=== PATIENT | male | born 1945 | race Caucasian/White ===

== ENCOUNTER → 2017-04-12 | Outpatient (CLI) | payer MEDICARE | END | disposition home or self-care (01) | LOC: SLEEP 16:03 | PROVIDERS: ATTEND Internal Medicine Critical Care Medicine | DX: Z53.9 Procedure and treatment not carried out, unspecified reason (principal) ==

== ENCOUNTER → 2017-06-28 | Outpatient (CLI) | payer MEDICARE ==
--- NOTE | 2017-06-29 10:17 | PN ---
A 71-year-old male patient coming in for a 6 month check regarding his obstructive sleep apnea treatment. The patient was diagnosed having severe KATHERINE with an AHI of 53.8. He is status post ( ). Patient is doing well on the treatment. His ( ) pressure is at 5.9. His average CPAP use is more than 4-1/2 hours per night and his AHI while on treatment is down to 3.7. He continues to have adequate clinical response. His sleep quality is good and he is waking up alert and refreshed during the day. He has history of PTSD and hypertension, hyperlipidemia. BP is 108/75, pulse 70, respirations 16, temperature is 98.0, BMI 31.9, weight is 210, height is 5,8, neck size is 17-1/4. Saturation 94% on room air. GENERAL APPEARANCE: Calm, comfortable. HEENT: Post ( ), no goiter or neck mass, soft palate is missing. LUNGS: Clear to auscultation. Heart sounds regular rate and rhythm, normal S1, S2. ABDOMEN: Soft, nontender, no organomegaly. EXTREMITIES: No edema, no cyanosis or clubbing. IMPRESSION: 1. Severe symptomatic obstructive sleep apnea with an apnea-hypopnea index of 53.8. The patient is still undergoing successful CPAP treatment. The patient is on Auto CPAP unit do to maximum pressure of 10 and minimum pressure of 4. Treatment remains successful. 2. Hypersomnia improved. 3. Posttraumatic stress disorder. 4. Hypertension. 5. Hyperlipidemia. PLAN: 1. Continue CPAP with the same pressure setting. 2. Renew CPAP supplies. 3. See me back in a years' time in followup, earlier if needed. KRISTI
== END ==
LOC: SLEEP 15:56
PROVIDERS: ATTEND Internal Medicine Critical Care Medicine
DX: G47.33 Obstructive sleep apnea (adult) (pediatric) (principal); G47.10 Hypersomnia, unspecified; I10 Essential (primary) hypertension; E78.5 Hyperlipidemia, unspecified; F43.10 Post-traumatic stress disorder, unspecified

== ENCOUNTER → 2018-07-19 | Outpatient (CLI) | payer MEDICARE ==
--- NOTE | 2018-07-19 12:30 | PN ---
PROGRESS NOTE This is a progress note from the sleep center. This 72-year-old male patient, a , who has been diagnosed having severe symptomatic obstructive sleep apnea a few years back with an AHI of 53.8. I have treated this patient with CPAP and the patient has an APAP unit at a maximum pressure of 10. I am seeing him today for his annual check up. Note that this patient is a and has been diagnosed having PTSD. He was also diagnosed having obstructive sleep apnea. He is under successful treatment. He has been averaging around 4.6 hours of CPAP use on his machine. His AHI while on treatment is down to 8.3. Today I noticed that he is having some leaks around the mask and I have made some adjustments and I offered him the AirFit N20 nose mask which will give him better seal. His P90 pressure is at 6.9. He is waking up refreshed and alert during the day. He thinks that the CPAP machine is benefitting him as his sleep quality is improved and he is not having any major hypersomnia or sleepiness during the day. His [place] score is at 12. On today's evaluation, the patient has gained some weight. He used to weigh around 210 pounds last year and he is currently is up to 228 with a BMI of 34.5. He is also having some statin induced leg cramps and pain for which he was started on Tegretol through his physician at [facility] and the treatment has helped. Otherwise, no other new complaints for now. REVIEW OF SYSTEMS: Twelve-point review of system was done. Positive findings were mentioned above in history of present illness. PHYSICAL EXAMINATION: BP is 146/71, pulse 61, respirations 16, temperature 98.1 saturation 96% on room air. Weight is 228. Height is 5 feet 8 inches. [place] score of 12. BMI 34.5. GENERAL APPEARANCE: Calm, comfortable. HEAD: Atraumatic normocephalic. NECK: Supple. No JVD. No goiter or neck mass. LUNGS: Diminished otherwise clear. HEART: Sounds regular rate and rhythm. Normal S1, S2. No S3, S4. No murmurs. ABDOMEN: Soft, nontender. No organomegaly. EXTREMITIES: No edema. No cyanosis or clubbing. NEUROLOGIC: Alert and oriented x3. There is no focal neurological deficit. IMPRESSION: 1. Severe symptomatic obstructive sleep apnea with an AHI of 53.8, currently on APAP. The patient continues to be treated successfully. We may need to make adjustments on his mask interface to help him with reduction in air leaks around the mask. 2. Posttraumatic stress disorder. 3. Hypertension. 4. Hyperlipidemia. 5. Leg cramps. This patient's obstructive sleep apnea is at least as likely as not related to his PTSD. We have data suggesting a good association between these two conditions. [facility] is already [facility] this and the patient is on partial disability for now pending further evaluation at a later stage. Meanwhile, I have made the recommendation for this patient to lose weight. He is up by around 14 pounds and he needs to go back to his original body weight. His treatment is successful. Will offer him the AirFit N20 full face mask large size and the patient was given a sample. If he preferred this mask, he will be permanently switched to the N20 nose mask. Otherwise he is doing good. We are still monitoring closely the association between PTSD and obstructive sleep apnea and for the time being this condition is at least as likely as not related to PTSD. We will continue to follow. We will work with the [facility] regarding his claims in the future. MMANAL / IJN: [id number] /
== END | disposition home or self-care (01) ==
LOC: SLEEP 10:59
PROVIDERS: ATTEND Internal Medicine Critical Care Medicine
DX: G47.33 Obstructive sleep apnea (adult) (pediatric) (principal); F43.10 Post-traumatic stress disorder, unspecified; I10 Essential (primary) hypertension; E78.5 Hyperlipidemia, unspecified; R25.2 Cramp and spasm; Z99.89 Dependence on other enabling machines and devices; Z79.899 Other long term (current) drug therapy

== ENCOUNTER → 2019-07-17 | Outpatient (CLI) | payer MEDICARE, OTHER ==
--- NOTE | 2019-07-17 12:24 | P.PN ---
Subjective Progress Note Date: 07/17/19 Principal diagnosis: Obstructive sleep apnea This is a very pleasant 73-year-old male patient is coming in for an annual checkup regarding his obstructive sleep apnea. As mentioned earlier, this patient has severe KATHERINE with an AHI 53.8 and the patient is being treated with CPAP therapy. The patient is currently utilizing an APAP mode with a maximum pressure of 10 and a minimum pressure of 4. He has a dream station Respironics units. Over this past 1 year, the patient did not have any major medical problems and comorbidities than the ones that he has. No new onset palpitations, cardiac arrhythmias, CVA, congestion heart failure or any heart attacks. He seems to be quite compliant with his APAP use. I check her compliance data and based on available information, the patient is been averaging 4.4 hours of APAP use per night and his AHI while in treatment is down to 7.8. He is having good mask fit and the P9 compression on the machine is reading at 5.8. He is waking up refreshed and alert during the day. During his last evaluation, I was able to give him and [id number] mask which she was unable to use and he went back and used his Eson nose mask. He is still looking for alternatives. Note that the patient has history of PTSD. He is at that time. He also has multiple medical problems and comorbidities. He is currently off her foot remains elevated at 20 despite his ongoing APAP use. He is able to function well. He does not fall asleep while driving. Does not fall asleep during the day activities. His sleep is fragmented mainly due to urination. He gets up multiple patient in the middle of the night to urinate. Symptoms of prostatism. Review of system 14 point review of system was done and the positive signs are almost above history of present illness. His sleep is fragmented. He has symptoms of prostatism with frequency and urgency and for that reason he wakes up multiple occasions in the middle of the night. No flashbacks. No nightmares. No nightmares. No sleepwalking. No sleep talking. No other parasomnias for now. Outpatient medication includes aspirin 81 mg by mouth daily, glucosamine chondroitin 1 tablet a day, lisinopril 5 mg by mouth daily, metoprolol 25 mg by mouth twice a day, MetroGel 1% topical, Naprosyn 500 mg on a when necessary basis and pravastatin 20 mg by mouth daily and verapamil 240 mg by mouth daily. Objective - Vital Signs Vital signs: His vitals include a blood pressure 121/72 with a pulse of 64 and the respiration of 16 with a BMI of 33.6 with a height of 57 and a weight of 218. His temperature is 97.8. Saturation 97% on room air. His current upper score is at 20. - Exam The patient appeared well nourished and normally developed. Vital signs as documented. Head exam is unremarkable. No scleral icterus or corneal arcus noted. Neck is without jugular venous distension, thyromegaly, or carotid bruits. Carotid upstrokes are brisk bilaterally. Lungs are clear to auscultation and percussion. Cardiac exam reveals the PMI to be normally sized and situated. Rhythm is regular. First and second heart sounds normal. No murmurs, rubs or gallops. Abdominal exam reveals normal bowel sounds, no masses, no organomegaly and no aortic enlargement. Extremities are nonedematous and both femoral and pedal pulses are normal.Examination of the skin revealed no evidence of significant rashes, suspicious appearing nevi or other concerning lesions. Neurologically the patient is awake and alert and there is no focal neurological deficits. Assessment and Plan Assessment: 1 obstructive sleep apnea, severe with an AHI of 53.8 and the patient continues to be successfully treated with APAP 2 hypersomnia improved despite the subjective reporting of an elevated a poor score of 20. 3 hypertension 4 hyperlipidemia 5 PTSD 6 history of leg cramps Plan Continue using APAP with a minimum of 4 and a maximum of 10. I'm going to offer in the dreamware under the nose medium-size nose mask. This will be an alternative methods to the one that he has for now. The patient is able to maintain his own weight. No recent weight loss. His comorbidities are all inactive and stable. He has history of PTSD units he is not being actively treated for that condition. He is not symptomatic from that standpoint. He is intermittently good sleep hygiene measures. Is still living with his . I'm hoping that the change in the mask interface will improve his compliance he further. I'll see him back in a years time, earlier if needed.
== END | disposition home or self-care (01) ==
LOC: SLEEP 10:52
PROVIDERS: ATTEND Internal Medicine Critical Care Medicine
DX: G47.33 Obstructive sleep apnea (adult) (pediatric) (principal); I10 Essential (primary) hypertension; E78.5 Hyperlipidemia, unspecified; F43.10 Post-traumatic stress disorder, unspecified; Z87.39 Personal history of other diseases of the musculoskeletal system and connective tissue; Z99.89 Dependence on other enabling machines and devices; Z79.82 Long term (current) use of aspirin; Z79.899 Other long term (current) drug therapy

== ENCOUNTER → 2020-07-22 | Outpatient (CLI) | payer MEDICARE ==
--- NOTE | 2020-07-22 16:17 | PN ---
PROGRESS NOTE Micheal is 74, coming in for an annual check regarding sleep apnea. He has severe obstructive sleep apnea with an AHI of 53, he has PTSD. He ended up quitting treatment altogether as the patient was having some feelings of claustrophobia and anxiety while on the CPAP. His treatment has been successful in the past and he has an APAP with a minimum pressure of 4, maximum pressure of 15. He has been given different masks and most recently he is using a Osuna FX nose mask. He has also used full mask in the past. He is sleepy. He is anxious. He is chronically tired. His weight has been essentially up by around 8 pounds since his last evaluation. His current body weight is up to 226. He has PFTs, comorbidities, in addition to hypertension, hyperlipidemia and history of leg cramps. PHYSICAL EXAMINATION: BP is 122/72, pulse 80, respirations 16, temperature 97.6, saturation 95% on room air. Height is 5, 8 inches, and weight is 226 and BMI 34.3. GENERAL APPEARANCE: Calm, comfortable. HEAD: Atraumatic, normocephalic. NECK: Supple. No JVD. No goiter or neck masses, Mallampati class 4. LUNGS: Clear to auscultation. HEART: Sounds are regular rate and rhythm, normal S1, S2. No murmurs. ABDOMEN: Soft, nontender, no organomegaly. EXTREMITIES: No edema, no cyanosis or clubbing. NEUROLOGIC: Awake and alert, there is no focal neurological deficit. IMPRESSION: 1. Obstructive sleep apnea, severe AHI of 53.8, symptomatic. 2. Chronic hypersomnia. 3. Obesity with interval weight gain, BMI 34.3. 4. PTSD. 5. Claustrophobia. 6. Hypertension. 7. Hyperlipidemia. 8. History of leg cramps. PLAN: 1. The patient is going to see his counselor regarding PTSD and treatment is advised. 2. We will start the CPAP again with a different mask interface and I offered the AirFit P30I nose piece, medium size. 3. Keep the same pressure setting. 4. Encourage weight loss. See me back in 3 months' time in followup. MMODL / IJN: [id number] / MTDD
== END | disposition home or self-care (01) ==
LOC: SLEEP 14:55
PROVIDERS: ATTEND Internal Medicine Critical Care Medicine
DX: E66.9 Obesity, unspecified (principal); I10 Essential (primary) hypertension; E78.5 Hyperlipidemia, unspecified; Z68.34 Body mass index [BMI] 34.0-34.9, adult; F40.240 Claustrophobia; F43.10 Post-traumatic stress disorder, unspecified; G47.10 Hypersomnia, unspecified; Z87.39 Personal history of other diseases of the musculoskeletal system and connective tissue

== ENCOUNTER → 2020-11-04 | Outpatient (CLI) | payer MEDICARE ==
--- NOTE | 2020-11-04 17:11 | PN ---
PROGRESS NOTE Micheal is 75, coming in for a followup. He has significantly improved since his last evaluation. Note that the patient has been started on a combination of Lexapro and trazodone 50 mg that he is taking at nighttime. This helped him quite a bit in terms of his compliance with the CPAP machine. He is using his CPAP machine every night. I checked his 30-day compliancy, and the patient has been achieving more than 4 hours almost every night. He is averaging around 6.1 hours of CPAP use and his AHI is down to 4.3 with a P90 pressure of 6.6. He is still struggling with different masks. I gave him the AirFit P30i, and on today's evaluation I gave him the N30i, knowing that he is having some cysts and irritation in his nostril. He also has a Mirage FX nose pillow, and I gave him an alternative to that which is the Nuance Pro nose pillow. He is going to try these as options and let me know which one would be his choice. He is waking up refreshed. He is waking up alert. He is more rested, much more comfortable. No new complaints. PHYSICAL EXAMINATION: BP is 129/75, pulse 68, respirations 16, temperature is 98.2, saturation 95% on room air. Height is 5 feet 8 inches, weight is 223. GENERAL APPEARANCE: Calm, comfortable. HEAD: Atraumatic, normocephalic. NECK: Supple. No JVD. No goiter or neck masses. LUNGS: Diminished; otherwise clear. HEART: Heart sounds are regular rate and rhythm. Normal S1, S2. No S3, S4. No murmurs. ABDOMEN: Soft, nontender. No organomegaly. EXTREMITIES: No edema. No cyanosis or clubbing. NEUROLOGIC: Awake and alert. There is no focal neurological deficit at this point in time. IMPRESSION: 1. Obstructive sleep apnea, effectively treated with APAP. P90 is at 6.6 and the patient's AHI while on treatment is down to 4.3 from a baseline of 53.8. 2. Chronic hypersomnia, improved. 3. Post-traumatic stress disorder, currently taking Lexapro and trazodone overnight, which has improved significantly and considerably his response to CPAP therapy. 4. Obesity. 5. History of hyperlipidemia. 6. Hypertension. 7. History of leg cramps. PLAN: 1. Continue the same treatment and try out the different masks that were mentioned above and contact me back with the choice of mask. I gave him the N30i, P30i, Nuance Pro and Osuna FX. 2. Encourage weight loss. 3. Continue trazodone 50 mg at bedtime. 4. Follow up with a counselor. 5. See me back in a year's time in followup, earlier if needed. MMODL / IJN: [id number] /
== END | disposition home or self-care (01) ==
LOC: SLEEP 15:25
PROVIDERS: ATTEND Internal Medicine Critical Care Medicine
DX: G47.33 Obstructive sleep apnea (adult) (pediatric) (principal); G47.10 Hypersomnia, unspecified; F43.10 Post-traumatic stress disorder, unspecified; E66.9 Obesity, unspecified; I10 Essential (primary) hypertension; Z87.39 Personal history of other diseases of the musculoskeletal system and connective tissue; Z99.89 Dependence on other enabling machines and devices; Z79.899 Other long term (current) drug therapy

== ENCOUNTER → 2021-10-27 | Outpatient (CLI) | payer MEDICARE ==
--- NOTE | 2021-10-27 15:29 | PN ---
PROGRESS NOTE Micheal is 76, coming in for an annual check, doing well. He has a DreamStation that needs to be updated, knowing that the machine is currently on recall. He is utilizing his CPAP pretty much most of the days of the week. He has a good mask fit and his average pressure delivered by the machine is around 8.1 while utilizing an automatic mode. He continues to use Osuna FX nasal pillows. He went through multiple pillow designs and nasal mask designs, and he ultimately decided to use the Osuna FX. He continues to have issues with depression and currently is on a combination of Lexapro, trazodone, and bupropion was added to his regimen. He has also history of PTSD. No significant nightmares. No significant agitation overnight. Treatment remains successful for now. He is averaging around 5 hours of CPAP use per night and his AHI is down to 9.1. REVIEW OF SYSTEMS: Fourteen-point review of system was done. Positive findings are depression and PTSD symptoms, which are currently inactive and stable. No significant weight gain over the past year. No cardiovascular complications. No congestive heart failure. PHYSICAL EXAMINATION: BP is 119/77, pulse 76, respirations 16, temperature 97.1, saturation 95% on room air. Height is 5 feet 7 inches, weight is 235, BMI 36.2. GENERAL APPEARANCE: Calm, comfortable. HEAD: Atraumatic, normocephalic. Neck is supple. No JVD. No goiter or neck masses. Mallampati class IV. LUNGS: Clear to auscultation. Heart sounds are regular rate and rhythm. Normal S1, S2. No S3, S4. No murmurs. ABDOMEN: Soft, nontender. No organomegaly. EXTREMITIES: No edema. No cyanosis or clubbing. NEUROLOGIC: Awake and alert. There is no focal neurological deficit. PSYCHIATRIC: Positive anxiety and depression. IMPRESSION: 1. Symptomatic obstructive sleep apnea. The patient continues to receive CPAP therapy through a DreamStation. The patient has an APAP mode for now. He is using a Osuna FX full-face mask. Compliance data was checked. 2. Chronic depression. 3. Chronic hypersomnia, improved. 4. Posttraumatic stress disorder. 5. Hyperlipidemia. 6. Hypertension. 7. History of leg cramps. PLAN: 1. Update his CPAP machine; the patient is on the list for a new CPAP to update his DreamStation which is currently on recall. 2. Continue CPAP therapy at the same level of pressure. 3. See me back in the office in a year's time in followup. MMANAL / YUNIN: [id number] /
== END ==
LOC: SLEEP 12:58
PROVIDERS: ATTEND Internal Medicine Critical Care Medicine
DX: G47.33 Obstructive sleep apnea (adult) (pediatric) (principal); F32.A Depression, unspecified; F43.10 Post-traumatic stress disorder, unspecified; E78.5 Hyperlipidemia, unspecified; I10 Essential (primary) hypertension; Z87.39 Personal history of other diseases of the musculoskeletal system and connective tissue; Z99.89 Dependence on other enabling machines and devices

== ENCOUNTER → 2022-10-26 | Outpatient (CLI) | payer MEDICARE ==
--- NOTE | 2022-10-26 15:33 | P.PN ---
Progress Note - Text Progress Note Date: 10/26/22 This is a 77-year-old male patient was coming in for an annual checkup regarding obstructive sleep apnea. The patient is a . The patient used to be treated for obstructive sleep apnea utilizing a dream station. He stopped using the CPAP treatment as the machine went on RA: The patient was concerned of the side effects and the possible ill of the machine on his health. Meanwhile, the [place] was able to send him a newer generation Respironics Sandeep unit. He received the machine approximately 3 weeks ago and he did not use the machine. He is considering to come off the treatment as the patient has lost weight. He used to weigh around 235 pounds and currently is down to 219. He is feeling better. While off the treatment, the patient has not seen a significant difference and hypersomnia or sleepiness. He has history of PTSD which is currently inactive and stable. He was doing well on CPAP therapy and while off the treatment, he has not seen any major improvement and he reports that his sleep quality is good. No heart attack. No congestion or failure. No stroke. No angina. He is averaging a good 6 hours of sleep per night. No significant snoring. His sleep is not fragmented. He has restlessness and lower extremities. He is also being contemplated for another Surgery at [facility] BP is 124/83 with a pulse of 69 and the respiration of 16 and temperature of 96.1. Saturation 96% on room air. Weight is 219. [place] score is at 11. The patient appeared well nourished and normally developed. Vital signs as documented. Head exam is unremarkable. No scleral icterus or corneal arcus noted. Neck is without jugular venous distension, thyromegaly, or carotid bruits. Carotid upstrokes are brisk bilaterally. Lungs are clear to auscultation and percussion. Cardiac exam reveals the PMI to be normally sized and situated. Rhythm is regular. First and second heart sounds normal. No murmurs, rubs or gallops. Abdominal exam reveals normal bowel sounds, no masses, no organomegaly and no aortic enlargement. Extremities are nonedematous and both femoral and pedal pulses are normal.Examination of the skin revealed no evidence of significant rashes, suspicious appearing nevi or other concerning lesions.Neurologically, the patient is awake and alert and the patient does not have any focal neurological deficit. Cranial nerves are essentially intact. Assessment Obstructive sleep apnea, currently off treatment. The patient is feeling well. He may have possibly an underlying restless leg syndrome. He is requesting an evaluation. He has a newer generation Dreamstation [facility]. Nevertheless, the patient has not used the machine pending further workup. Possible RLS Chronic depression PTSD Hypertension Hyperlipidemia Plan We'll just a polysomnogram to reevaluate the presence of sleep apnea and assess the need for CPAP therapy. This will be also a good opportunity to evaluate this patient for periodic limb movement activity and sleep fragmentation related to restless leg. Encourage further weight loss. Final recommendation will be made on CPAP therapy based on the findings on his polysomnogram.
== END ==
LOC: SLEEP 13:01
PROVIDERS: ATTEND Internal Medicine Critical Care Medicine
DX: Z53.9 Procedure and treatment not carried out, unspecified reason (principal)